=== PATIENT | male | born 1970 | race American Indian/Alaskan Native ===

== ENCOUNTER 2019-07-27 11:49 | Emergency (ER) | payer BC ==
[2019-07-27] MEDS ORDERED: ASPIRIN 325 MG TAB PO ONE (12:42)
[2019-07-27 13:12] LABS: Basophils % (Auto) 0.9 % (0.0-1.8); Eosinophils % (Auto) 0.9 % (0.0-4.3); Hemoglobin 14.9 gm/dl (11.8-15.2); Lymphocytes # (Auto) 1.7 K/mm3 (1.2-5.4); Mean Corpuscular HGB Conc 35 % (32-34); Mean Corpuscular Volume 91 fl (84-94); Monocytes # (Auto) 0.3 K/mm3 (0.0-0.8); Monocytes % (Auto) 6.1 % (0.0-7.3); Platelet Count 271 K/mm3 (140-440); Red Blood Count 4.74 M/mm3 (3.65-5.03); Red Cell Distribution Width 12.7 % (13.2-15.2)
[2019-07-27 13:38] LABS: BUN/Creatinine Ratio 9; Blood Urea Nitrogen 9 mg/dL (9-20); Calcium 9.4 mg/dL (8.4-10.2); Hemolysis Index 8
--- NOTE | 2019-07-27 14:44 | Emergency Department Report ---
HPI - General Chief Complaint: Arrhythmia/Palpitations Time Seen by Provider: 07/27/19 14:12 - HPI HPI: 48-year-old male presents to the emergency department with the complaint of some palpitations, intermittent shortness of breath and generally just not feeling well. Overall he says this is been happening for the past few months. It started after he had his wisdom teeth taken out and was referred to cardiology by his ENT. He saw [facility] 2 days ago and had a Holter monitor placed but has not followed up yet to have it evaluated. This morning at 8:15 AM the patient started having the symptoms again and they were intensified so he came in to be evaluated. He has a past medical history of epilepsy. He is a former smoker. Denies any tobacco use. No recent travel or sick contacts at home. He denies any chest pain, fever, back pain, cough. ED Past Medical Hx - Past Medical History Previous Medical History?: Yes Hx Seizures: Yes - Surgical History Past Surgical History?: Yes Additional Surgical History: left hand surgery - Social History Smoking Status: Never Smoker Substance Use Type: Alcohol ED Review of Systems ROS: Stated complaint: RAPID HEART RATE Other details as noted in HPI Comment: All other systems reviewed and negative Constitutional: denies: chills, fever Eyes: denies: eye pain, vision change ENT: denies: ear pain, throat pain Respiratory: shortness of breath. denies: cough Cardiovascular: palpitations. denies: chest pain Gastrointestinal: denies: abdominal pain, vomiting Genitourinary: denies: dysuria, discharge Musculoskeletal: denies: back pain, arthralgia Skin: denies: rash, lesions Neurological: denies: headache, weakness Physical Exam - Physical Exam Vital Signs: Vital Signs 07/27/19 07/27/19 12:39 14:31 Temperature 97.8 F Pulse Rate 85 77 Respiratory 20 16 Rate Blood Pressure 105/61 Blood Pressure 127/90 [Right] O2 Sat by Pulse 96 99 Oximetry Physical Exam: GENERAL: The patient is well-developed well-nourished. HENT: Normocephalic. Atraumatic. Patient has moist mucous membranes. EYES: Extraocular motions are intact. NECK: Supple. Trachea is midline. CHEST/LUNGS: Clear to auscultation. There is no respiratory distress noted. HEART/CARDIOVASCULAR: Regular. There is no tachycardia. There is no murmur. ABDOMEN: Abdomen is soft, nontender. Patient has normal bowel sounds. There is no abdominal distention. SKIN: Skin is warm and dry. NEURO: The patient is awake, alert, and oriented. The patient is cooperative. The patient has no focal neurologic deficits. Normal speech. MUSCULOSKELETAL: There is no tenderness or deformity. There is no limitation range of motion. There is no evidence of acute injury. ED Course Vital Signs 07/27/19 07/27/19 12:39 14:31 Temperature 97.8 F Pulse Rate 85 77 Respiratory 20 16 Rate Blood Pressure 105/61 Blood Pressure 127/90 [Right] O2 Sat by Pulse 96 99 Oximetry ED Medical Decision Making - Lab Data Result diagrams: 07/27/19 13:00 07/27/19 13:00 - EKG Data -: EKG Interpreted by Me EKG shows normal: sinus rhythm, axis, intervals, QRS complexes, ST-T waves Rate: normal - EKG Data When compared to previous EKG there are: previous EKG unavailable Interpretation: normal EKG - Radiology Data Radiology results: image reviewed interpreted by me: Chest x-ray does not show any acute process. There are no pleural effusions, obvious pneumonia and there is no pneumothorax. - Medical Decision Making This patient presents to the emergency department with a return of his palpitations. He is currently wearing a Holter monitor but has not had it evaluated yet by the drop hammer operator helper. EKG did not show any signs of ST elevation [place] or dysrhythmia. Labs have been unremarkable including CBC, metabolic panel, TSH and troponins 2. Chest x-ray did not show any pleural effusions, pneumonia, pneumothorax, or any focal consolidation. The patient is low on the well's score criteria, is negative on the pulmonary embolism rule out criteria, and does not have any of the risk factors for thromboembolic disease. The p atient appears safe for discharge home at this time. He has been instructed to follow-up with the drop hammer operator helper and to return to the emergency Department with any worsening of his symptoms or any acute distress. - Differential Diagnosis hyperthyroidism, electrolyte abnormalities, dysrhythmia Critical Care Time: No Critical care attestation.: If time is entered above; I have spent that time in minutes in the direct care of this critically ill patient, excluding procedure time. ED Disposition Clinical Impression: Palpitations Disposition: DC-01 TO HOME OR SELFCARE Is pt being admited?: No Condition: Stable Instructions: Palpitations (ED) Additional Instructions: Please follow-up with [facility] for reevaluation of your palpitations and the Holter monitor. Return to the emergency Department with any worsening of your symptoms or any acute distress. Referrals: [facility] [Provider Group] - [facility] Time of Disposition: 15:33
--- NOTE | 2019-07-27 15:10 | XRay Report ---
CHEST 2 VIEWS INDICATION: palpitations. COMPARISON: None. FINDINGS: Support devices: None. Heart: Within normal limits. Pulmonary vasculature: Normal. Lungs/pleura: No acute air space or interstitial disease. No pneumothorax. Additional findings: None. IMPRESSION: Normal chest. Signer Name: Jan Alvarenga MD Signed: 07/27/2019 3:05 PM Workstation Name: [id number]
[2019-07-27 16:56] VITALS: BP 124/93
== END 2019-07-27 16:57 | disposition home or self-care (01) ==
LOC: ED 11:49
DX: R06.02 Shortness of breath (principal); R00.0 Tachycardia, unspecified
CPT/HCPCS: 36415; 71046; 80048; 84443; 84484; 85025; 93005; 93010

== ENCOUNTER 2019-08-31 08:25 | Emergency (ER) | payer BC ==
[2019-08-31] MEDS ORDERED: IBUPROFEN 800 MG TAB PO ONE (10:58)
--- NOTE | 2019-08-31 11:03 | Emergency Department Report ---
HPI - General Chief Complaint: Pain General Time Seen by Provider: 08/31/19 10:27 - HPI HPI: Room 45 The patient is a 48-year-old male presenting with a chief complaint of right TMJ pain. The patient states for the past 2 days she's had pain in his right TMJ with difficulty opening his mouth. Patient denies any preceding trauma or history of fever. Patient states he developed sore throat approximate one week ago. Patient states he has difficulty opening his mouth because it causes pain at the right TMJ Location: [See above] Duration: [See above] Quality: [See above] Severity: [See above] Timing: [See above] Context: [See above] Modifying factors: [See above] Associated signs and symptoms: [see above] ED Past Medical Hx - Past Medical History Previous Medical History?: Yes Hx Seizures: Yes - Surgical History Past Surgical History?: Yes Additional Surgical History: left hand surgery - Family History Family history: no significant - Social History Smoking Status: Former Smoker Substance Use Type: None (denies illicit drug use), Alcohol (occasional) - Medications Home Medications: Home Medications Medication Instructions Recorded Confirmed Last Taken Type Cyclobenzaprine [Flexeril] 10 mg PO TID PRN #20 tablet 08/31/19 Unknown Rx HYDROcodone/APAP 5-325 [[place] 1 - 2 each PO Q6HR PRN #14 tablet 08/31/19 Unknown Rx 5/325] Naproxen [Naprosyn] 500 mg PO Q12H PRN #30 tablet 08/31/19 Unknown Rx ED Review of Systems ROS: Stated complaint: CHECK UP Other details as noted in HPI Constitutional: no symptoms reported Eyes: denies: eye pain ENT: other (right TMJ pain) Respiratory: denies: no symptoms reported Cardiovascular: denies: chest pain Endocrine: no symptoms reported Gastrointestinal: denies: abdominal pain Genitourinary: denies: dysuria Physical Exam - Physical Exam Vital Signs: Vital Signs 08/31/19 08:58 Temperature 97.6 F Pulse Rate 89 Respiratory 18 Rate Blood Pressure 108/72 O2 Sat by Pulse 96 Oximetry Physical Exam: GENERAL: The patient is well-developed well-nourished male sitting on chair not appearing to be in acute distress. [] HEENT: Normocephalic. Atraumatic. Extraocular motions are intact. Patient has moist mucous membranes. Tenderness to palpation of the right TMJ. There is no malocclusion of the bite present. Oropharynx appears clear. NECK: Supple. Trachea midline CHEST/LUNGS: There is no respiratory distress noted. SKIN: There is no rash. There is no edema. There is no diaphoresis. NEURO: The patient is awake, alert, and oriented. The patient is cooperative.The patient has normal speech MUSCULOSKELETAL: There is no evidence of acute injury. ED Course Vital Signs 08/31/19 08:58 Temperature 97.6 F Pulse Rate 89 Respiratory 18 Rate Blood Pressure 108/72 O2 Sat by Pulse 96 Oximetry ED Medical Decision Making - Differential Diagnosis TMJ syndrome Critical care attestation.: If time is entered above; I have spent that time in minutes in the direct care of this critically ill patient, excluding procedure time. ED Disposition Clinical Impression: TMJ syndrome Disposition: - TO HOME OR SELFCARE Is pt being admited?: No Does the pt Need Aspirin: No Condition: Stable Instructions: Temporomandibular Disorder (ED) Additional Instructions: Return to the emergency department should you develop worsening symptoms, inability to tolerate food or liquids, high fever or any other concerns Prescriptions: Cyclobenzaprine [Flexeril] 10 mg PO TID PRN #20 tablet PRN Reason: Muscle Spasm Naproxen [Naprosyn] 500 mg PO Q12H PRN #30 tablet PRN Reason: Pain, Moderate (4-6) HYDROcodone/APAP 5-325 [[place] 5/325] 1 - 2 each PO Q6HR PRN #14 tablet PRN Reason: Pain Referrals: JANAE DOTSON MD [Staff Physician] - 3-5 Days (Dr. Dotson is an [facility] surgeon (ear nose and throat doctor). Please follow-up with her for further evaluation) Time of Disposition: 11:03
[2019-08-31 11:21] VITALS: BP 110/78
== END 2019-08-31 11:18 | disposition home or self-care (01) ==
LOC: ED 08:25
DX: M26.621 Arthralgia of right temporomandibular joint (principal); Z87.891 Personal history of nicotine dependence; Z79.899 Other long term (current) drug therapy